=== PATIENT | female | born 1965 | race Caucasian/White ===

== ENCOUNTER → 2020-04-01 17:26 | Outpatient (CLI) | payer OTHER, SELFPAY ==
[2020-04-01 18:03] LABS: Amphetamine Urine VISTA NEGATIVE (<1000 ng/mL); Barbiturate Urine VISTA NEGATIVE (< 200 ng/mL); Benzodiazepine Urine VISTA NEGATIVE (< 200 ng/mL); Cocaine Urine VISTA NEGATIVE (< 300 ng/mL); Ecstacy Urine VISTA NEGATIVE (< 500 ng/mL); Methadone Urine VISTA NEGATIVE (< 300 ng/mL); PCP Urine VISTA NEGATIVE (< 25 ng/mL); THC Urine VISTA NEGATIVE (< 50 ng/mL); Vista UDS pH Range 6
== END ==
PROVIDERS: Referring Provider Anesthesiology Pain Medicine; Visit Provider Anesthesiology Pain Medicine
DX: F11.20 Opioid dependence, uncomplicated (principal)
CPT/HCPCS: 80307

== ENCOUNTER → 2020-07-29 17:08 | Outpatient (CLI) | payer OTHER, SELFPAY ==
--- NOTE | 2020-07-29 17:16 | RAD_ITS ---
STUDY: X-RAY - THORACIC SPINE REASON FOR EXAM: Female, 54 years old. BACK PAIN TECHNIQUE: 3 view(s) of the thoracic spine were obtained. COMPARISON: None. FINDINGS: Normal kyphosis of the thoracic spine. There is no substantial scoliosis. There is multilevel endplate spondylosis of the thoracic vertebrae. There is multilevel disc space narrowing of the thoracic spine. The soft tissue structures are unremarkable. 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 Electronically Signed: Marshall Ross MD at 6:48 EDT Tel , Service support ,
== END ==
PROVIDERS: Referring Provider Anesthesiology Pain Medicine; Visit Provider Anesthesiology Pain Medicine
DX: M54.9 Dorsalgia, unspecified (principal)
CPT/HCPCS: 72072

== ENCOUNTER → 2021-08-14 | Outpatient (CLI) | payer BC, SELFPAY ==
--- NOTE | 2021-08-14 18:15 | MRI_ITS ---
STUDY: MRI THORACIC SPINE WITHOUT CONTRAST REASON FOR EXAM: Female, 55 years old. THORACIC RADICULOPATHY, NO KNOWN INJURY TECHNIQUE: MRI examination of the thoracic spine obtained with standard protocol including multiplanar multiecho noncontrast imaging. Contrast: No contrast administered. COMPARISON: None. FINDINGS: VERTEBRAL BODIES: 1. NORMAL kyphosis of the thoracic spine. There is no substantial scoliosis. 2. Heterogeneous marrow signal is noted without evidence of marrow edema or destructive marrow replacement processes. DISC SPACES: 1. Multilevel disc desiccation, there are broad-based posterior disc bulges and osteophyte complexes at multiple levels without evidence of disc herniation or canal stenosis. Disc bulges are seen present at T5-6, T6-7 T7-8 and T8-9. 2. Neural foramina have normal appearance. Spinal CORD: 1. Normal visualized thoracic cord. Normal conus medullaris that terminates at the L1 level. Paraspinous soft tissue structures are unremarkable. MRI/Spine Thoracic (Routine) IMPRESSION: 1. Mild thoracic spondylosis with disc desiccation and minimal disc bulges at multiple levels without evidence tirso disc herniation canal stenosis or nerve root of cord compression. 2. Normal appearance of the visualized thoracic cord without intradural or intramedullary abnormality noted. Electronically Signed: Marshall Amaro MD at 2:20 EDT ,
== END | disposition home or self-care (01) ==
LOC: MRI 17:31
PROVIDERS: Referring Provider Anesthesiology Pain Medicine; Visit Provider Anesthesiology Pain Medicine
DX: M54.14 Radiculopathy, thoracic region (principal)
CPT/HCPCS: 72146

== ENCOUNTER 2022-02-09 07:00 | Outpatient (RCR) | payer BC, SELFPAY ==
--- NOTE | 2022-01-12 09:24 | HP.PTEVAL_ITS ---
Patient's Visit Information DUY RAMIREZ is a 56 year old F referred to Physical Therapy by Dr. Vishnu Buchanan MD with a diagnosis of BACK AND THORACIC PAIN. Date of Evaluation: 01/12/22 Physical Therapist: Daniel Crouch PT, Cert MDT, OCS - Visit Plan Frequency: 2x /Week Duration: 4 Weeks Plan: PT INTERVETIONS POSTURAL EX'S ,DLS ,THORACIC ROM/MOBILITY ,STRENGTHENING ,PATIENT EDUCATION AND MODLATIES PRN - Subjective This 56 y/o female presents with physical therapy lumbar and thoracic pain. Patient has had many years . Most recently ,patient developed mid back pain ~ 3 years which has progressively. Patient has h/o lumbar surgery lumbar discectomy 2006. Patient recently had injections in lumbar most recent Sep 2021 and typically receives injection every [address] wanted injection thoracic but needed to do PT . Although ,recent MRI showed posterior bulging disc. Patient pain located thoracic scapular and radiates to ribs. And lumbar symmetrical. Aggravating bending ,lifting twisting and sitting. Alleviating factors Percocet and injections, coughing/sneezing+. Denies paresthesia/tingling. Difficulty sleeping due to pain. Bowel/bladder-. Patient symptoms affects QOL and function. SOCIAL: . 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 GAIT: reciprocal pattern. PALPATION: tender paraspinals thoracic. NEURO: denies paresthesia/tingling ,reflexes L3-4,L4-5 ,L5 -S1. SYMMTRIES: align. BUE AROM: WFL. MMT: BUE grossly 4/5 ,quads/hams/hip 4/5 ,ankle 5/5. THORACIC ROM: flexion mod loss, extension mod loss, rotation min/mod loss. LUMBAR ROM: flexion mod loss ,extension mod loss pain ,side glides min loss. FLEXABLITY: hamstrings min tight - Balance/Special Test Scores Oswestry Low Back Score: 28 - Goals Goal 1:: Patient to be I with HEP for back Goal Time Frame: 4-6 Weeks Goal 2:: Improve posture /body mechanics 80% of the time. Goal Time Frame: 4-6 Weeks Goal 3:: Patient to demonstrate 50% with improved and decrease pain Goal Time Frame: 4-6 Weeks Goal 4:: Patient to improve lumbar/thoracic ROM for function of recovery for ADL's Goal Time Frame: 4-6 Weeks Goal 5:: Patient - Rehabilitation Potential Physical Therapy Diagnosis: Patient thoracic pain had MRI showed posterior bulging disc and spurs along with h/o lumbar surgery with pain with position and motion testing causes impairments with function and ADLS and job demands Rehabilitation Potential: Good - Anticipated Interventions Patient/Client Instruction: Educate patient on: Condition, Plan of Care For the Purpose of:: To decrease pain, To increase ROM, To improve muscle performance and motor function, To improve ability to perform ADL's, To increase tolerance to activity/condition/position, To improve ability of physical actions for home/community/work/leisure, To improve health of tissue, To decrease soft tissue restriction, To increase flexibility/ROM, To improve balance, To reduce risk of recurrence Therapeutic Exercise to Include: Strength training, Endurance training, Body mechanics, Postural training, Flexibilty training, Active ROM, Dynamic Lumbar Stabilization Comment: THJORACIC For the Purpose of:: To increase ROM, To improve muscle performance and motor function, To improve ability to perform ADL's, To increase tolerance to activity/condition/position, To improve ability of physical actions for home/community/work/leisure, To improve health of tissue, To decrease soft tissue restriction, To increase flexibility/ROM, To improve endurance TENS: Yes IF ES: Yes Cryotherapy (ice pack, ice massage): Yes Thermo therapy (hot pack): Yes Ultrasound (thermal/non thermal): Yes For the Purpose of:: To decrease pain, To increase ROM, To improve muscle performance and motor function, To increase tolerance to activity/condition/position, To improve ability of physical actions for home/community/work/leisure, To improve health of tissue, To prevent re-injury Thank you for the opportunity to evaluate your patient. For Medicare and Medicare HMO plans, please review the plan of care and approve it. It will need to be FAXED BACK to us at [phone] for Medicare purposes. For Medicare only, by signing this I certify the plan of care. Please let me know if there are questions or concerns regarding this plan of care. Physician Signature: Date:
--- NOTE | 2022-01-12 09:24 | HP.PTDCS(3) ---
It has been my pleasure to treat DUY RAMIREZ referred by Dr. Vishnu Buchanan MD, with the diagnosis of for a total of visit(s). Discharge Date: Please see the following information for a summary of their discharge status. If there are questions or concerns regarding this patient's physical therapy, please feel free to call me at [phone]. Thank you for the referral of this patient. Sincerely, Daniel Crouch PT, Cert MDT, OCS
--- NOTE | 2022-02-09 07:22 | HP.PTDCSUM ---
It has been my pleasure to treat DUY RAMIREZ referred by Dr. Vishnu Buchanan MD, with the diagnosis of BACK AND THORACIC PAIN for a total of 8 visit(s). Discharge Date: Please see the following information for a summary of their discharge status. Subjective: Patient finally received 2 nd injections. Ex's seem not to help with pain Bilateral Back Pain Intensity (Out of 10): 4 % Improvement: 20 Objective/Function: Pt seems to be managing symptoms a little better. Notes she likes the strengthening right now while she can manage it. Pt requested vibration massage rather than MH today. Goal 1:: Patient to be I with HEP for back Goal Progress: Goal Met Goal 2:: Improve posture /body mechanics 80% of the time. Goal Progress: Progressing Goal 3:: Patient to demonstrate 50% with improved and decrease pain Goal Progress: Progressing Goal 4:: Patient to improve lumbar/thoracic ROM for function of recovery for ADL's Goal Progress: Progressing Goal 5:: Patient Plan: D/C If there are questions or concerns regarding this patient's physical therapy, please feel free to call me at [phone]. Thank you for the referral of this patient. Sincerely, Daniel Crouch, PT, Cert MDT, OCS Balance/Gait/Functional tests - Balance/Special Test Scores Oswestry Low Back Score: 17
== END 2022-02-09 19:00 | disposition home or self-care (01) ==
LOC: PT 07:00
PROVIDERS: Referring Provider Anesthesiology Pain Medicine; Visit Provider Anesthesiology Pain Medicine
DX: M54.6 Pain in thoracic spine (principal); M54.50 Low back pain, unspecified
CPT/HCPCS: 97014; 97110; 97162; 97530; G0283

== ENCOUNTER 2024-09-20 12:52 | Outpatient (RCR) | payer OTHER, SELFPAY ==
--- NOTE | 2024-09-20 14:35 | HP.FCE ---
Task Lift Floor (Occasional 1-33% of Day): 15 Floor (Frequent 34-66% of Day): 7.5 Floor (Constant 67-100% of Day): 3.15 Floor PDL: Sedentary-Light Knee (Occasional 1-33% of Day): 15 Knee (Frequent 34-66% of Day): 7.5 Knee (Constant 67-100% of Day): 3.15 Knee PDL: Sedentary-Light Waist (Occasional 1-33% of Day): 15 Waist (Frequent 34-66% of Day): 7.5 Waist (Constant 67-100% of Day): 3.15 Waist PDL: Sedentary-Light Shoulder (Occasional 1-33% of Day): 15 Shoulder (Frequent 34-66% of Day): 7.5 Shoulder (Constant 67-100% of Day): 3.15 Shoulder PDL: Sedentary-Light Overhead (Occasional 1-33% of Day): 0 Overhead (Frequent 34-66% of Day): 0 Overhead (Constant 67-100% of Day): 0 Overhead PDL: No Ability Comments: pt scores as sedentary light for floor, knee waist as well as shoulder lift; no ability for overhead lift Work Activity/Posture Bending: Frequent Ability (34-66% of day) Squatting: Frequent Ability (34-66% of day) Kneeling: No Ablility (0% of day) Reaching out: Constant Ability (67-100% of day) Reaching up: Constant Ability (67-100% of day) Sitting: Frequent Ability (34-66% of day) Walking: Occasional Ability (1-33% of day) Standing: Occasional Ability (1-33% of day) Reference Reference: Duration Sedentary Sedentary Light Light Light Medium Medium Medium Heavy Very Heavy Heavy Occasional (0-33% of day) Frequent (34-66% of day) Constant (67-100% of day) 10 # Negligible Negligible 15 # 8 # Negligible 20 # 10# Negli. 35 # 18 # 7 # 50 # 25 # 10 # 75 # 100 # >100 # 38 # 50 # >50 # 15 # 20 # >20 # Patient Information Height: 5 ft Weight:: 95.254 kg Hand Dominance: R Medical History Medical History Including Restrictions: This 58 year old female arrives for FCE with dx of back pain. Pt back pain started 1992 when she was carrying items down stairs. pt has had back operated on for sciatic pain. Pt states she has been dealing with back pain for 32 years now. Per pt the past 5 years has now began in the upper back. pt now gets shots in upper and lower back. pt gets 3-4 epidural shots a year in upper as well as lower back. pt states shots help a lot however will wear off after approx 2 months. Pt completed PT at [facility] 01/13/24-02/10/24 in order to get shots in back. pt has tried chiropractor in past however did not help. Pain radiates to hips but not down legs. Upper back pain radiates around ribs. pt states bulging discs in upper back. 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 Behavioral Behavioral: calm and cooperative emotional due to pain ADLS ADLS: pt lives with daughter in private home with 6 to enter from porch if enters from garage has 4-5 steps. pt does sleep upstairs flight of stairs to get to room. pt home does have lift chairs due to ill in past. pt bathroom with t/s combo with anti slip matthieu grab bars. standard commodes. Pt is able to perform all ADL tasks with extended time. 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 drives. pt completes mobility without AD at this time. Physical Examination Physical Examination: HR 96 bpm and 02 97% ROM: BUE WFL BLE WFL Strength: measured using fet peak force Upper Extremity: L shoulder flexion: 8.1# R shoulder flexion: 10.9# L tricep: 11.2# R tricep: 8.3# L ER: 15.4# R ER: 11.1# Lower Extremity: L hip flexion: 12.3# R hip flexion: 13.0# L quad: 17.4# R quad: 10.6# L hamstrin.3# R hamstrin.5# Right Nurse Leader Strength Average: 26.66 Right Nurse Leader Strength Percentile: 0th percentile Left Nurse Leader Strength Average: 43.33 Left Nurse Leader Strength Percentile: 10th percentile Right Lateral Pinch Average: 12.00 Right Lateral Pinch Percentile: 50th percentile Left Lateral Pinch Average: 12.00 Left Lateral Pinch Percentile: 50th percentile Right Tripod Pinch Average: 12.00 Right Tripod Pinch Percentile: 50th percentile Left Tripod Pinch Average: 15.00 Left Tripod Pinch Percentile: 90th percentile Sensation: semme manuel monofilament R hand D1-33.22 indicating diminished light touch D 4-5 2.83 indicating normal sensation L hand D1-5 2.44 indicating normal sensation Fine Motor: 9 hole peg assessment: L hand trial 1: 32 sec trial 2: 29 sec trial 3: 29 sec L hand average: 30seconds indicating pt in the 0th percentile for age and gender R hand trial 1: 25 sec trial 2: 25 sec trial 3: 26 sec R hand average: 25.3 sec indicating pt in 10th percentile for age and gender Balance: standing forward reach score 8" a score between 6-10" indicates moderate risk for falls Non Material Handling Activities Bending: bending: trial of 3: 33 no UE support 10x at own pace: 10/10 no UE support slow pace no LOB during task 10x fast: 10/10 no external support standing with L foot slightly in front of other HR 101 bpm and 02 96% overall back pain 4/10 Squatting: squatting: trial of 3: 3/3 10x at own pace: 10/10 with unilateral support of desk for stability no LOB comes fdc down 10x fast: 10/10 unilateral support of desk comes approx 1/[address] speeds remains about the same HR 93 bpm and 02 97% Kneeling: kneeling: trial of 3: /3 10x at own pace: 0/10 10x fast: 0/10 unable to complete Reaching out/up: reaching out: trial of 3: 33 10 at own pace: 10/10 10x fast: 10/10 HR 83 bpm and 02 97% pain rating at 4/10 in back overall reaching up: trial of 3: 3/3 10 at own pace: 11/30 10x fast: 11/30 HR 90 bpm 02 98% pain rating back overall 05/31 all complete in standing Walking: Per pt she is able to walk around the block if she has been warmed up able to walk x2 laps around gym 844 feet before needing sitting rest break no AD needed for mobility at this time HR 81 bpm 02 98% overall back pain 06/30 Standing: per pt about 15 minutes before needing to sit for RB during FCE pt stands for approx 10 min before needing seated RB no external support needed Sitting: per pt she is able to sit for approx 15-20 min then needs to move around pt sits for intake of assessment for approx 30 min before getting up for postural assessment portion pt does adjust position often during intake Climbing Stairs: able to ascend and descend 10 steps with use of unilateral hand rail alternating steps Dynamic Occasional Lifting Capacity Floor Lift: box(15#) no additional weight 15# overall HR 90 bpm 02 98% Knee Lift: Knee (15#) no additional weight 15# overall HR 90 bpm and 02 98% pain in back 4.5 /10 Waist Lift: box (15#) no additional weight 15# overall HR 77 bpm and 02 97% pain in back 4.5/10 Shoulder Lift: box (15#) no additional weight 15# overall HR 84 bpm 02 97% back pain 4.5/10 Overhead Lift: unable Carrying: box (15#) to filing cabinet and back 52 feet total no additional weight 15# total HR 108 bpm and 02 98% back pain overall 4.5/10
--- NOTE | 2025-01-09 17:25 | HP.OTFCE.D ---
FCE D/C Summary Discharge text: DUY Saroj RAMIREZ was seen for a one time visit for an FCE on 09/20/24 and is discharged.
== END 2024-09-20 19:00 | disposition home or self-care (01) ==
LOC: OT 12:52
PROVIDERS: Referring Provider Anesthesiology Pain Medicine; Visit Provider Anesthesiology Pain Medicine
DX: M54.9 Dorsalgia, unspecified (principal)
CPT/HCPCS: 97750